=== PATIENT | female | born 1950 | race Caucasian/White ===

== ENCOUNTER → 2017-08-10 | Outpatient (CLI) | payer OTHER ==
[~2017-08-10] VITALS: Ht 162.6 cm; Wt 95.3 kg
[~2017-08-10] MED LIST: ASPIRIN81 M2 PO; BENICAR HCT 401 EAC1 PO; CALCIUM 600 +1 EAC1 PO; FISH OIL 1,001000 M1 PO; IRON325 PO; NEXIUM 40 MG CA40 M1 PO; PROBIOTIC1 EAC1 PO; TELMISARTAN-HC1 EAC1 PO; VITAMIN D1000 UNIT PO
--- NOTE | ~2017-08-10 | S ---
[facility] Daniel Devlin [place] [address] SURGICAL PATH RPT PROCEDURE Name: URMILA HANDLEY Room #: REG CL Lester#: [id number] Admission: 08/10/17 Date of : 52 Discharge: Report #: [id number] Path Case #: [id number] PATHOLOGY REPORT COLLECTION DATE: 08/10/2017 RECEIVED DATE: 08/10/2017 SUBMITTING PHYS: Dr. Obie Matthews OTHER PHYS: Dr. Ricci Coon SPECIMEN(S) RECEIVED: A.Small bowel B.Gastritis C.Polyp gastric x3 * * * * * * * * * * * * FINAL DIAGNOSIS: A. Small bowel mucosa, small bowel, endoscopic biopsy: - Mild active peptic duodenitis with focal villous blunting. - Negative for findings suggesting sprue or celiac disease. B. Gastric mucosa, gastritis, endoscopic biopsy: - Mild reactive gastropathy. - Negative for intestinal metaplasia or atrophy. - Negative for Helicobacter pylori. C. Polyp, gastric, endoscopic biopsy: - Compatible with fundic gland polyps. - Negative for dysplasia or malignancy. (IUV:rhys; 08/11/2017) COMMENT: Well-controlled Helicobacter pylori immunohistochemical stain performed on block B1 - Negative. PATHOLOGIST: Isis Ashley M.D. REPORT ELECTRONICALLY SIGNED BY: Isis Ashley M.D. DATE/TIME: 08/11/2017 15:32 * * * * * * * * * * * * GROSS PATHOLOGY: A. Received in formalin labeled "Urmila Jordann and biopsy small bowel," are several segments of lin soft tissue measuring 1.0 x 0.4 x 0.1 cm in aggregate dimensions and ranging from 0.3 to 0.6 cm in maximum dimension. The specimen is submitted entirely in cassette A1. B. Received in formalin labeled "Urmila Jordann and biopsy gastritis," are multiple segments of lin soft tissue measuring 0.7 x 0.4 cm in aggregate dimensions and ranging from 0.1 to 0.[address] [address] SURGICAL PATH RPT PROCEDURE Name: URMILA HANDLEY Room #: REG [facility].#: [id number] Admission: 08/10/17 Date of : 52 Discharge: Report #: [id number] Path Case #: [id number] maximum dimension. The specimen is submitted entirely in cassette B1. C. The specimen is received in formalin, labeled " Urmila Handley and polyp gastric", are three sessile polyps ranging from 0.7 x 0.5 x 0.3 cm to 1.0 x 0.7 x 0.5 cm, inked black and entirely submitted in C1-C3. (SWS; 08/10/2017) CLINICAL HISTORY: GERD,un ppi, large hiatal hernia, esophagitis, gastritis, gastric polyp, rule out celiac INITIAL CPT CODE(S): A; 17926 B; 82676, 66225 C; 49505 Professional services performed by [facility] at [facility] [address], [place] [address] Technical services performed by [facility] at [address] [place] [address], [address], [place] [address]. [facility] [address] [place] [address] PHONE: [phone] DIRECTOR: Sanya White M.D. * * * END OF REPORT * * *
--- NOTE | ~2017-08-10 | P ---
[facility] [place] [address] PROCEDURE REPORT Name: URMIAL HANDLEY Room #: REG [facility]#: [id number] Admission: 08/10/17 Attend Phys: Obie Matthews MD Discharge: Date of : 52 Report #: [id number] THIS REPORT FOR: //name// CC: Obie Coon MD OUTPATIENT UPPER ENDOSCOPY REPORT BRIEF HISTORY: The patient is a 66-year-old woman with complaints of abdominal pain on PPI therapy. She also has reflux disease and still with some reflux symptoms on PPI therapy. In addition, she has an iron deficiency anemia. PREOPERATIVE DIAGNOSES: Abdominal pain, reflux and iron deficiency anemia. POSTOPERATIVE DIAGNOSES: 1. Severe grade D erosive esophagitis. 2. Large hiatus hernia, 8-10 cm. 3. Diffuse gastritis. 4. Multiple gastric polyps. MEDICATIONS: Deep sedation with propofol per anesthesia. SPECIMENS: 1. Small bowel biopsies to rule out celiac disease. 2. Biopsy of gastritis. 3. Multiple gastric polyps. ESTIMATED BLOOD LOSS: 3 mL. PROCEDURE: EGD with snare polypectomy and biopsy. FINDINGS: Prior to propofol sedation, procedure of upper endoscopy was discussed with the patient as well as potential risks and its complications. She indicates she understands and desires to proceed. DESCRIPTION OF PROCEDURE: With the patient in left lateral decubitus position, Fuji video endoscope was inserted in the cervical esophagus under direct vision without difficulty. Examination of this organ through its entire length revealed normal esophageal mucosa down the squamocolumnar junction. At the squamocolumnar junction, she had extensive esophagitis involving the entire circumference. There was also evidence of a small pseudodiverticulum, likely related to previous inflammatory disease. A significant stricture was not seen. Obvious malignancy was not seen. Findings were felt to be consistent with grade D erosive esophagitis. It was also noted the esophagus was ____ short and likely related to the hiatus hernia. The scope was advanced into the large hiatus hernia. It measured anywhere from 8-10 cm in greatest dimension. [facility] [address] [place] [address] PROCEDURE REPORT Name: URMILA HANDLEY Room #: REG [facility] Benja.#: [id number] Admission: 08/10/17 Attend Phys: Obie Matthews MD Discharge: Date of : 52 Report #: [id number] mucosa in the hernia was unremarkable. No ulcers or bleeding lesions were seen in the hernia. Examination of distal stomach on end view as well as retroflexed views revealed erythematous mucosa. No ulcers or bleeding lesions were seen. Examination of the body and fundus of the stomach revealed multiple polyps. Many were small but some were larger in the range of 10 mm or slightly larger. This had appearance of a typical hyperplastic gastric polyp related to use of PPIs. However, due to the size of some of these polyps, several were removed by snare polypectomy for pathologic examination. The pylorus, duodenal bulb and postbulbar duodenal sweep were inspected and noted to be within normal limits. At that point, the scope was slowly withdrawn and careful circumferential views confirmed the above findings. The patient tolerated the procedure well. CONDITION OF THE PATIENT UPON DISCHARGE: Following procedure, the patient was drowsy, arousable and conversant and will be discharged home when fully ambulatory. INSTRUCTIONS TO THE PATIENT AND FAMILY AT THE TIME OF DISCHARGE: We will follow up on biopsies obtained today. We will have her increase her PPI therapy to twice daily and also she may use ranitidine or Pepcid at bedtime. Anemia very well may be the result of her severe esophagitis. We will follow up on biopsies obtained today. It is noted that she had an M2 capsule study in February 2014, at which point, she is noted to have esophagitis, but other abnormalities were not identified. Also, her last colonoscopy was in February 2014, no abnormalities were identified. At this point, we will have her return to see me in followup in the office in about 6 weeks or so. I think surgery maybe a strong consideration in this patient who has large hiatus hernia and severe esophagitis, who has significant esophagitis on PPI therapy. If there remains concern about anemia, repeating colonoscopy and M2 capsule study may be a consideration. Again, she will return to see me in followup in the office. She will also continue to follow up with Dr. Ricci Coon. By: [id number] Obie Matthews MD /viktor
== END | disposition home or self-care (01) ==
LOC: GI 08:35
DX: K31.7 Polyp of stomach and duodenum (principal); K31.9 Disease of stomach and duodenum, unspecified; K29.80 Duodenitis without bleeding; K44.9 Diaphragmatic hernia without obstruction or gangrene; K22.10 Ulcer of esophagus without bleeding; I10 Essential (primary) hypertension; K21.9 Gastro-esophageal reflux disease without esophagitis; Z85.828 Personal history of other malignant neoplasm of skin; Z98.890 Other specified postprocedural states; Z96.652 Presence of left artificial knee joint; Z79.899 Other long term (current) drug therapy
CPT/HCPCS: 62110; 62900

== ENCOUNTER → 2017-09-04 | Outpatient (CLI) | payer OTHER | LOC: CAT 08:17 | DX: K44.9 Diaphragmatic hernia without obstruction or gangrene (principal); K76.0 Fatty (change of) liver, not elsewhere classified; K21.9 Gastro-esophageal reflux disease without esophagitis; D25.9 Leiomyoma of uterus, unspecified; M47.896 Other spondylosis, lumbar region; M41.86 Other forms of scoliosis, lumbar region ==

== ENCOUNTER 2017-12-06 05:19 | Inpatient (IN) | payer OTHER ==
[~2017-12-06] VITALS: Ht 162.6 cm; Wt 99.3 kg
--- NOTE | ~2017-12-06 | EKG ---
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 : 1950 Requested By: Akil Campbell Order Number: [id number] MD: Ernesto Clifford Measurements Intervals [place] Rate: 76 P: -14 IA: 158 QRS: -53 QRSD: 96 T: 1 QT: 414 QTc: 466 Interpretive Statements Sinus rhythm Inferior infarct, old Poor R wave progression Compared to ECG 11/20/2012 13:04:52 Myocardial infarct finding now present Sinus bradycardia no longer present Inferior Q waves are more prominent Electronically Signed On 12-06-2017 9:16:11 ZANJERO by Ernesto Clifford [email or web address] <ELECTRONICALLY SIGNED> By: Ernesto Clifford MD, [facility] 12/06/17915 5 5 Ernesto Clifford MD, [facility] /EPI
--- NOTE | ~2017-12-06 | H ---
[facility] [place] [address] HISTORY AND PHYSICAL Name: URMILA HANDLEY Room #: 428-P [facility] IN M.R.#: [id number] Admission: 12/06/17 Attend Phys: Akil Campbell MD Discharge: 12/08/17 Date of : 52 Report #: [id number] THIS REPORT FOR: //name// CC: Obie Coon MD PREOPERATIVE DIAGNOSIS: Large paraesophageal hiatal hernia with acid reflux. HISTORY OF PRESENT ILLNESS: The patient is a 67-year old who came to the office in August after her most recent endoscopy. The patient has a history of gastroesophageal reflux for about 10 years. She also has a history of anemia and drop in her hemoglobin. She was found to have esophagitis, on endoscopy 3-4 years ago. Recently on August 10, the patient had a repeat EGD. She is complaining of waking up with acid taste in the throat, a lot of indigestion and tightness in the throat. No chronic cough. Last November, she did have pneumonia. Her most recent EGD in July showed a large hiatal hernia. The patient came in for evaluation for possible repair of the large hiatal hernia. She is currently on Protonix 40 b.i.d. and also Zantac 300 at nighttime. She has tried to raise her head. She also tries to avoid eating before going to bed. The patient had a CT performed. The CT showed a large about half of her stomach is up into the chest. This appears to be a paraesophageal hiatal hernia. Her most recent EGD in July 2017 showed gastritis. Fundic gland polyp. No dysplasia or malignancy. The patient with her symptom of acid reflux and anemia, she is recommended to have her paraesophageal hiatal hernia repair. She understands the procedure and the risks involved and wishes to proceed. PAST MEDICAL HISTORY: She has acid reflux, elevated blood pressure and arthritis. PAST SURGICAL HISTORY: Knee surgery in 2003 and 2013 and tubal ligation in 1983. CURRENT MEDICATIONS: Telmisartan/hydrochlorothiazide 500/225, probiotic, vitamin D, iron, Protonix 40 b.i.d. and Zantac 300 at bedtime. She was on Nexium in the past. ALLERGIES: The patient does not have any allergies. FAMILY HISTORY: There is heart disease and COPD. Mother had cancer. 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 Does not smoke. She drinks 1-2 drinks per month. REVIEW OF SYSTEMS: No chest pain, shortness of breath or palpitation. No numbness or weakness. [address] [address] HISTORY AND PHYSICAL Name: URMILA HANDLEY Room #: [facility] IN M.R.#: [id number] Admission: 12/06/17 Attend Phys: Akil Campbell MD Discharge: 12/08/17 Date of : 52 Report #: [id number] PHYSICAL EXAMINATION: GENERAL: The patient is moderately obese. She is alert and oriented. HEENT: Pupils react to light. Extraocular muscles are intact. Oropharynx clear. NECK: Soft and supple. No masses. CHEST: Clear to auscultation. HEART: Regular rate and rhythm. No murmur or gallop. ABDOMEN: Soft. No mass, guarding, rigidity or rebound. No ascites. IMPRESSION AND RECOMMENDATIONS: The patient is a 67-year old with a longstanding history of acid reflux. The patient was found to have a pretty large paraesophageal hiatal hernia. She is recommended to have this repaired. Because of the paraesophageal hiatal hernia. She is much more likely to have complications compared to a sliding hernia. On CT, it looks like half her stomach is in the chest. The patient did have manometry, which showed good esophageal motility. We will repair the hiatal hernia and perform Mandeep fundoplication for antireflux. Risks of procedure including bleeding, infection, hernia recurrence and injury of esophagus were discussed. Use of a mesh was discussed. The patient understands the procedure. <ELECTRONICALLY SIGNED> By: Akil Campbell MD 12/29/17 1426 2215 [id number] Akil Campbell MD /nt
--- NOTE | ~2017-12-06 | O ---
[facility] [place] [address] OPERATIVE REPORT Name: URMILA HANDLEY Room #: 428-P [facility] IN M.R.#: [id number] Admission: 12/06/17 Attend Phys: Akil Campbell MD Discharge: 12/08/17 Date of : 52 Report #: [id number] THIS REPORT FOR: //name// CC: Obie Coon MD PREOPERATIVE DIAGNOSES: 1. Paraesophageal hiatal hernia. 2. Gastroesophageal reflux disease. POSTOPERATIVE DIAGNOSES: 1. Paraesophageal hiatal hernia. 2. Gastroesophageal reflux disease. PROCEDURES PERFORMED: 1. Laparoscopic repair of paraesophageal hiatal hernia with Phasix mesh. 2. Laparoscopic Mandeep fundoplication. ANESTHESIA: General. SURGEON: Akil Campbell M.D. COMPLICATIONS: None. ESTIMATED BLOOD LOSS: 10 mL. PROCEDURE NOTE: With the patient under general anesthesia, timeout was performed. The patient received preoperative IV antibiotics. Romo catheter was placed. SCDs were applied. The patient was placed in lithotomy position. Abdomen was prepped and draped in sterile fashion. Timeout was performed. An incision in the epigastrium was made. This was about 2 cm incision. Fascia was identified, grasped with hemostat. Fascia was then opened under visualization; 0 Vicryl suture was then placed on the fascia retraction with the abdominal wall lifted anteriorly. Veress needle was then placed through peritoneum. Abdominal cavity was entered by CO2. After creating pneumoperitoneum, an 11 mm trocar was placed. This was placed under visualization. No harm to lung tissue. The 5 mm trocars placed in the right upper quadrant, another 5 mm trocar placed in the left epigastrium and then, a 12 mm trocar placed in left upper quadrant at the midclavicular line and then the anterior axillary line. A 5 mm trocar placed in the left anterior axillary line. Liver retractor was placed on lifting the liver up. The hiatal hernia was visualized. There is probably about a 5-10 cm segment of hernia sac and stomach up in the chest. The peritoneum was divided along the edge of the diaphragm. The hernia sac was then reduced out of the chest. The hernia sac was then excised from the GE junction area using a Harmonic scalpel. The esophagus was identified and preserved from [facility]. [address] [address] OPERATIVE REPORT Name: ENDERURMILA Room #: 428-P [facility] IN ..#: [id number] Admission: 12/06/17 Attend Phys: Akil Campbell MD Discharge: 12/08/17 Date of : 52 Report #: [id number] Esophagus was not manipulated. Dissection was also carried out into the chest where areolar tissue was divided to allow mobilization of the sac and then also the mobilization of the esophagus. Aorta was visualized. This was preserved from [facility]. The diaphragmatic edges were then cleaned off. Lesser sac was entered lateral to the stomach and then up to the GE junction. This allowed the fundus to be completely divided on the upper part away from the spleen and the diaphragm. The diaphragmatic crura were then isolated. A #48-Icelandic bougie was then placed. The diaphragmatic closure was sized based on the bougie. A 3-0 silk sutures were placed. Three separate 3-0 silk sutures were placed in the crura posterior to the esophagus and small pledgets which were used on the 0 silk suture. This was tied down. The diaphragm actually had pretty good strength to it. A single suture was placed anteriorly along the central tendon. This seems to be a little more gaping up that area. After the diaphragmatic closure, a Phasix mesh that is measured as 10 x 10 cm was trimmed about a couple of centimeters off each side and then, a U was cut out of it making a U-shaped mesh. This was placed as 12 mm trocar and left side was placed underneath the GE junction, brought out to the left side and then the right side and the mesh was flattened out well. Mesh was initially tacked with SorbaFix to hold in place. Then, CV2 suture Cuero-Piotr suture was then placed at the medial part of the U cephalad and then the lower corner of the U and then the left side also. SorbaFix was then used to tack the rest of it in place. Mandeep fundoplication was performed. An 0 silk suture placed on the posterior part of the fundus. This was to bring it over. This was trimmed. The suture was divided and held with clips. I was able to go from the patient's right side and see the suture and then was able to bring the fundus underneath the esophagus. Again, a 48 bougie was advanced downward. During the diaphragmatic closure, the bougie was pulled back and then was readvanced for the sizing of the Mandeep fundoplication. The laparoscopic Mandeep was then performed using an 0 Ethibond. Again, pledgets were used. Three separate bites were taken. A nice wrap was able to be performed. The very top suture was also sutured to diaphragm holding in place. Irrigation was performed. No bleeding was identified. Repair is well constructed. The mesh seated well. Tisseel was then placed over the mesh in a spray form. The patient tolerated procedure well. A bougie was removed. A Romo catheter will be removed at the end of the case. The patient had good urinary output. The trocars were removed. CO2 was evacuated as much as possible. Liver retractor was also removed. Prior to this fascia defect, a 12 mm trocar was placed with an EndoStitch of 0 Vicryl. The fascia defect at the cutdown site was closed with [id number] 0 PDS x 2. Skin was irrigated. Skin was closed with 5-0 PDS. Steri-Strip, Band-Aids were applied. The patient tolerated the procedure well. <ELECTRONICALLY SIGNED> By: Akil Campbell MD 12/29/17 1426 1205 [id number] Akil Campbell MD /nt
[~2017-12-06 05:19] MED LIST changes: +NORCO 5-325 TA1 EACH PO; +PRESERVISION T1 EACH PO; +PROTONIX40 M1 PO; +ZANTAC 150MG T150 MG PO
[2017-12-06 08:00] VITALS: BP 136/86
[2017-12-06 09:15] LABS: CREATININE 0.7 mg/dL (0.6-1.0); POTASSIUM 4.1 mmol/L (3.5-5.1)
[2017-12-06 15:30] VITALS: BP 143/77
[2017-12-06 20:00] VITALS: BP 131/69
[2017-12-07] VITALS: BP 130/75
[2017-12-07 04:00] VITALS: BP 136/76
[2017-12-07 07:25] VITALS: BP 144/81
[2017-12-07 17:14] VITALS: BP 121/74
[2017-12-07 19:10] VITALS: BP 107/59
[2017-12-08 05:21] VITALS: BP 140/74
[2017-12-08 07:14] VITALS: BP 131/89
[2017-12-08 15:20] VITALS: BP 106/62
[2017-12-08] MEDS ORDERED: HYDROCODONE-ACE15 ML PO (15:47)
[2017-12-08 16:11] VITALS: BP 106/62
== END 2017-12-08 17:12 | disposition home or self-care (01) | DRG 328 ==
LOC: TBA 05:19 → 4E 05:19 → PRE 12:59 → 4E 15:53 → ENTRNSPT 12-08 16:59 → 4E 12-08 17:12
PROVIDERS: Surgery
PROC: 0DV44ZZ Restriction of Esophagogastric Junction, Percutaneous Endoscopic Approach (ICD-10-PCS; principal; 2017-12-06)
PROC: 0BUT4JZ Supplement Diaphragm with Synthetic Substitute, Percutaneous Endoscopic Approach (ICD-10-PCS; principal; 2017-12-06)
DX: K44.9 Diaphragmatic hernia without obstruction or gangrene (principal); K21.9 Gastro-esophageal reflux disease without esophagitis; M19.90 Unspecified osteoarthritis, unspecified site; Z80.9 Family history of malignant neoplasm, unspecified; Z82.5 Family history of asthma and other chronic lower respiratory diseases; Z88.6 Allergy status to analgesic agent; Z88.8 Allergy status to other drugs, medicaments and biological substances
CPT/HCPCS: 10783; 50010; 50101; 50249; 50411; 50455; 50555; 50558; 50848; 50886; 51436; 51474; 51489; 52182; 53307; 53310; 53335; 54022; 54109; 56462; 56524; 56525; 56526; 56528; 62110; 62900; 70005

== ENCOUNTER → 2018-08-02 | Outpatient (CLI) | payer OTHER ==
[~2018-08-02] MED LIST changes: +HYDROCODONE-ACE15 ML PO
== END ==
LOC: CAT 07:56
DX: K44.9 Diaphragmatic hernia without obstruction or gangrene (principal); I51.7 Cardiomegaly; I70.0 Atherosclerosis of aorta; J84.10 Pulmonary fibrosis, unspecified; K21.9 Gastro-esophageal reflux disease without esophagitis

== ENCOUNTER → 2021-05-18 | Outpatient (CLI) | payer OTHER | LOC: SJCVCIMAG 14:46 | PROVIDERS: ATTEND Internal Medicine | DX: I48.91 Unspecified atrial fibrillation (principal); I10 Essential (primary) hypertension ==

== ENCOUNTER → 2021-06-22 | Outpatient (CLI) | payer OTHER | LOC: RAD 08:56 | PROVIDERS: ATTEND Family Medicine | DX: M54.6 Pain in thoracic spine (principal); M54.5 Low back pain ==

== ENCOUNTER → 2021-08-03 | Outpatient (CLI) | payer OTHER | LOC: RAD 14:09 | PROVIDERS: ATTEND Nurse Practitioner | DX: M47.816 Spondylosis without myelopathy or radiculopathy, lumbar region (principal); M51.36 Other intervertebral disc degeneration, lumbar region; M54.40 Lumbago with sciatica, unspecified side; M43.16 Spondylolisthesis, lumbar region ==

== ENCOUNTER → 2021-08-10 | Outpatient (CLI) | payer OTHER | LOC: RAD 10:02 | PROVIDERS: ATTEND Nurse Practitioner | DX: M40.294 Other kyphosis, thoracic region (principal); J90 Pleural effusion, not elsewhere classified; G95.29 Other cord compression; M51.35 Other intervertebral disc degeneration, thoracolumbar region; R91.8 Other nonspecific abnormal finding of lung field ==

== ENCOUNTER → 2021-08-11 | Outpatient (CLI) | payer OTHER ==
[2021-08-11 14:49] LABS: CREATININE 0.7 mg/dL (0.6-1.0)
== END ==
LOC: CAT 13:39 → LAB 13:39
PROVIDERS: ATTEND Nurse Practitioner
DX: M47.815 Spondylosis without myelopathy or radiculopathy, thoracolumbar region (principal); R22.2 Localized swelling, mass and lump, trunk; K44.9 Diaphragmatic hernia without obstruction or gangrene; J98.11 Atelectasis; J90 Pleural effusion, not elsewhere classified; E04.2 Nontoxic multinodular goiter

== ENCOUNTER → 2021-08-20 | Outpatient (CLI) | payer OTHER ==
[~2021-08-20] VITALS: Ht 160 cm; Wt 87.1 kg
[~2021-08-20] MED LIST changes: +APAP W/CODEINE1 TA2 PO; +CALCIUM 500 +1 EAC5 PO; +CALCIUM 600 +1 EA12 PO; +DIAZEPAM 2MG TAB2 MG PO; +ELIQUIS5 MG PO; +FAMOTIDINE 20 M20 MG PO; +NEURONTIN 300M300 M2 PO; +PRESERVISION A1 EAC2 PO; +PROTONIX40 M4 PO
[2021-08-20 10:52] VITALS: BP 149/79
[2021-08-20 11:11] LABS: ABSOLUTE NEUTROPHILS 3.2 thou/uL (1.4-8.2); BASOPHILS 2.1 % (0.0-2.0); EOSINOPHILS 5.2 % (0.0-3.0); HEMATOCRIT 39.4 % (37.0-47.0); HEMOGLOBIN 12.9 gm/dL (12.0-15.0); LYMPHOCYTES 18.9 % (24.0-44.0); MCH 27.3 pg (26.0-34.0); MCHC 32.6 g/dL (28.0-37.0); MCV 83.7 fL (80.0-100.0); MONOCYTES 13.6 % (1.0-8.0); PLATELET COUNT 295 thou/uL (150-400); POLYS 60.2 % (36.0-66.0); RBC 4.71 mil/uL (4.20-5.00); RDW 14.3 % (10.5-14.5); WBC 5.3 thou/uL (4.0-11.0)
[2021-08-20 11:26] LABS: INR 1.03; PROTIME 11.2 Seconds (10.5-12.1)
[2021-08-20 14:01] VITALS: BP 175/89
--- NOTE | 2021-08-30 11:27 | PATH ---
[facility] [address] [place] [address] PATHOLOGY RPT PROCEDURE Name: ENDERURMILA KEATING Room #: REG STEVEN Batista#: [id number] Admission: 08/20/21 Date of : 52 Discharge: Report #: [id number] Path Case #: [id number] [facility] Accession Number: [id number] . 01 Material submitted: . spinal cord - PARASPINAL MASS BIOPSY . 01 Diagnosis: Soft tissue "paraspinal mass": -No carcinoma seen. - Minute fragment with only lymphocytes present. - See comment. (SHA:rhys; 08/23/2021) [facility] 08/24/2021 1459 Local . 01 Comment: Immunoperoxidase stains: . CD45: positive AE1/AE3: negative CK7: Negative CK20: Negative TTF-1: Negative TITA-3: Negative Chromogranin: negative Synaptophysin: negative P40: Negative. . This case is also reviewed by Dr. Magnolia Cochran. She agreed with the above diagnosis. If lymphoproliferative process is suspected FLOW studies are recommended. The material biopsied may not be development representative. Suggest clinical correlation. . (MELANIE:rhys; 08/23/2021) . 01 Addendum: . Special studies report received from [facility], [address] [place] [address], [address], [place], [address], on case [id number], labeled with their number [id number], dated 08/26/2021. . Flow Cytometry: Hematologic Neoplasia Assessment . Clinical History Paraspinal mass . Indication For Study [address] [address] PATHOLOGY RPT PROCEDURE Name: URMILA HANDLEY Room #: REG [facility].#: [id number] Admission: 08/20/21 Date of : 52 Discharge: Report #: [id number] Path Case #: [id number] Evaluation for hematolymphoid neoplasia . Specimen Tissue, Paraspinal . Viability 93% (7AAD exclusion) . Interpretation Tissue, Paraspinal: CD10+ monotypic (clonal) B-cell population (81% of sample) with predominantly small to intermediate / mixed / cell size (see comments) . 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 Correlation with available clinical, laboratory, and morphologic data is recommended. If needed, FISH testing (IGH/BCL2) is available. Please contact us if further testing for this sample is needed. . Populations Analyzed Abnormal B-cells: 81% Scatter properties compatible with small to intermediate cell size, cells characterized as: CD45+, CD19+, CD20+, CD5-, CD10+, CD23-, FMC7-/+, CD30-, CD43-, CD38+/-, HLA DR+, sIg lambda+ Remaining 5% B-cells: 0.1%, polytypic/polyclonal sIg light Lymphocytes: chain pattern T-cells: no significant abnormalities of the markers tested CD4:CD8: 8.7 NK cells: 0.2% CD45 Negative 14% No significant reactivity with the markers tested Events/Debris: tested (may represent non-hematolymphoid cells, degenerated cells, debris, unlysed red blood cells, etc.) . Morphologic Evaluation A slide was reviewed for quality review specialist purposes only. . Specimen Description Total Cell Yield: 1.56 X 10 and 6 . Reagent(s) Used CD2, CD3, CD4, CD5, CD7, CD8, CD10, CD11b, CD19, CD20, CD23, CD30, CD38, CD43, CD45, CD56, CD57, FMC-7, HLA-DR, kappa, lambda . at [facility]. [place] [address] PATHOLOGY RPT PROCEDURE Name: ENDERURMILA Room #: REG [facility] Sarthak.#: [id number] Admission: 08/20/21 Date of : 52 Discharge: Report #: [id number] Path Case #: [id number] Hematopathologist . Intended Use Flow cytometry is optimally used to immunophenotypically characterize abnormal populations when they are detected. Negative flow cytometry results do not exclude lymphoma or neoplasia. Possible false negative flow cytometry results may occur in, but are not limited to, the following: neoplastic cells in Hodgkin lymphoma are not typically adequately represented by routine clinical flow cytometry; neoplastic cells may be lost or inadequately represented due to degeneration, sample processing, sampling artifact, or patchy involvement; plasma cells are typically underrepresented by flow cytometry; immature cells/blasts may be underrepresented due to hemodilution; myeloproliferative disorders and low grade myelodysplasia may not have immunophenotypic abnormalities or increased blasts. Correlation with all available clinical, laboratory, and morphologic data is always necessary to assess for the possibility of false negative flow cytometry results and to establish a diagnosis. Each marker in this analysis was used to assess for potential antigenic abnormalities or to evaluate detected abnormalities. . Any image or images that accompany this report are development representative images only and should not be used to render a diagnosis. . Disclaimer(s) This test was developed and its performance characteristics determined by [employer]. It has not been cleared or approved by the Food and Drug Administration. . Performing [facility] is a business unit of [facility] a wholly-owned subsidiary of [employer]. . This test was performed at [facility]. at [address], [address] - Edge Stripper: Russell Lopez MD. . For inquiries, the physician may contact Lab: [phone] . A complete copy of the report is on file. . Professional services performed by [facility]. at [address], [place] [address]. Technical services performed by [employer]. at [address], [place] [address]. . (SHA:cuate 08/26/2021) . [address] [address] PATHOLOGY RPT PROCEDURE Name: URMILA HANDLEY Room #: REG [facility]..#: [id number] Admission: 08/20/21 Date of : 52 Discharge: Report #: [id number] Path Case #: [id number] AZJ/08/26/2021 Addendum Electronically Signed by Alonzo Verdugo MD. Pathologist . 01 Electronically signed: . Alonzo Verdugo MD, Pathologist NPI- [id number] . 01 Gross description: . Received in formalin labeled "Urmila Handley, paraspinal mass biopsy" are multiple lin-brown soft tissue fragments measuring in aggregate 1.2 x 0.5 x 0.2 cm. The specimen is submitted entirely in A1-A2. ([facility]; 08/21/2021) GZA/GZA 08/21/2021 1215 Local . 01 Pathologist provided ICD-10: M46.30 . 01 CPT . 726148, N33121, R60863 Specimen Comment: A courtesy copy of this report has been sent to [phone] Specimen Comment: Report sent to Performed at: [address], [place] [id number] MD Alonzo Verdugo MD Phone: [phone]
== END | disposition home or self-care (01) ==
LOC: LAB 10:11
PROVIDERS: Radiology Vascular & Interventional Radiology; ATTEND Internal Medicine
DX: M79.89 Other specified soft tissue disorders (principal); M46.30 Infection of intervertebral disc (pyogenic), site unspecified; I10 Essential (primary) hypertension; K21.9 Gastro-esophageal reflux disease without esophagitis; I48.91 Unspecified atrial fibrillation; M85.80 Other specified disorders of bone density and structure, unspecified site; Z85.820 Personal history of malignant melanoma of skin; Z85.828 Personal history of other malignant neoplasm of skin; Z79.01 Long term (current) use of anticoagulants; Z98.890 Other specified postprocedural states; Z79.899 Other long term (current) drug therapy

== ENCOUNTER → 2021-08-30 | Outpatient (CLI) | payer OTHER ==
[2021-08-30 10:42] LABS: HEMATOCRIT 40.1 % (37.0-47.0); MCH 26.9 pg (26.0-34.0); MCHC 32.3 g/dL (28.0-37.0); MCV 83.4 fL (80.0-100.0); RBC 4.81 mil/uL (4.20-5.00); RDW 14.4 % (10.5-14.5); WBC 4.6 thou/uL (4.0-11.0)
[2021-08-30 10:55] LABS: APTT 28.4 Seconds (24.5-32.8); INR 1.01
[2021-08-30 10:58] LABS: ALBUMIN 3.7 g/dL (3.4-5.0); CALCIUM 9.5 mg/dL (8.5-10.1); CREATININE 0.9 mg/dL (0.6-1.0); POTASSIUM 4.6 mmol/L (3.5-5.1); TOTAL BILIRUBIN 0.5 mg/dL (0.2-1.0); TOTAL PROTEIN 7.2 g/dL (6.4-8.2)
[2021-08-30 11:26] LABS: URINE BILIRUBIN NEGATIVE (Negative); URINE BLOOD NEGATIVE (Negative); URINE CLARITY CLEAR; URINE COLOR YELLOW; URINE GLUCOSE-RANDOM* NEGATIVE (Negative); URINE KETONES NEGATIVE (Negative); URINE LEUKOCYTES-REFLEX NEGATIVE (Negative); URINE NITRITE-REFLEX NEGATIVE (Negative); URINE PROTEIN (DIPSTICK) NEGATIVE (Negative); URINE UROBILINOGEN 0.2 E.U./dl (0.2-1.0)
== END ==
LOC: LAB 08:52 → PAC 08:52
PROVIDERS: ATTEND Specialist
DX: Z01.812 Encounter for preprocedural laboratory examination (principal); C41.2 Malignant neoplasm of vertebral column

== ENCOUNTER 2021-09-02 11:09 | Day surgery (SDC) | payer OTHER ==
[~2021-09-02] VITALS: Ht 157.5 cm; Wt 86.2 kg
[2021-09-02 12:30] VITALS: BP 143/67
[2021-09-02 16:35] VITALS: BP 143/67
--- NOTE | 2021-09-08 15:07 | PATH ---
[facility] [place] [address] PATHOLOGY RPT PROCEDURE Name: URMILA HANDLEY Room #: DEP [facility]#: [id number] Admission: 09/02/21 Date of : 52 Discharge: 09/02/21 Report #: [id number] Path Case #: [id number] [facility] Accession Number: [id number] . 01 Material submitted: . thorax - RIGHT THORACIC PARASPINOUS TUMOR T8/T9-FS. Modifiers: right, PARASPINOUS, T8/T9 . 01 Clinical history: . DS 09/02/EXCISION TUMOR SPINAL TUMOR . 02 Frozen section diagnosis: . FROZEN SECTION DIAGNOSIS AND TOUCH PREP: (Magnolia Cochran MD) . Right paraspinal mass, touch prep: - Lymphoid proliferation. - Defer to flow cytometry and permanents. . This report was given to Dr. Rodriguez by Dr. Cochran on 09/02/2021 and a written report is placed in the patient's chart. . Frozen section and touch prep performed at [facility], [address] [place], [place] [address]nella Moran, [place] [address]. . . FROZEN SECTION GROSS DESCRIPTION: The specimen is received labeled with the patient's name and right thoracic paraspinal tumor. Received fresh from the operating room are multiple fragments of lin-pink, fleshy tissue fragments ranging in size from 0.6 to the smallest which measures 0.2 cm. Ash Pit Worker section is submitted for touch prep and subsequently the entire tissue is submitted in block A1 in formalin. Tissue is also submitted in RPMI for flow cytometry studies. (ANK:rhys; 09/02/2021) NNK/QMS . 03 Amended report: . This is an amended report because a consultative opinion has been obtained. There is a change in the diagnosis. CASE SIGNED OUT WITH ONLY SPECIAL STUDIES REPORT ENTERED, NO DIAGNOSIS ENTERED. . 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 . Special studies report received from [facility], [address] [place] [address], [address], , [address], on case [id number], labeled with their number [id number], dated 09/04/2021. . Flow Cytometry: Hematologic Neoplasia Assessment . Clinical History Right thoracic/ paraspinal mass . Indication For Study Evaluation for hematolymphoid neoplasia . Specimen Tissue, Right Thoracic/ Paraspinal Mass . Viability 15% (7AAD exclusion) . Interpretation Tissue, Right Thoracic/ Paraspinal Mass: CD10+ monotypic (clonal) B-cell population (11% of sample) with predominantly small to intermediate cell size (see comments) . 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 Correlation with available clinical, laboratory, and morphologic data is recommended. If needed, FISH testing (IGH/BCL2) is available. Please contact us if further testing for this sample is needed. . Populations Analyzed Abnormal B-cells: 11% Scatter properties compatible with small to intermediate cell size, cells characterized as: CD45+, CD19+, CD20+, CD5-, CD10+, CD23-, FMC7+, CD30-, CD43-, CD38-, HLA DR+, sIg lambda+ Remaining 3% B-cells: 0.0%, polytypic/polyclonal sIg light chain Lymphocytes: pattern T-cells: no significant abnormalities of the markers tested CD4:CD8: 3.4 NK cells: 0.1% CD45 Negative 86% No significant reactivity with the markers tested Events/Debris: (may represent non-hematolymphoid cells, degenerated cells, debris, unlysed red blood cells, etc.) . [address] [address] PATHOLOGY RPT PROCEDURE Name: URMILA HANDLEY Room #: DEP [place] Lester#: [id number] Admission: 09/02/21 Date of : 52 Discharge: 09/02/21 Report #: [id number] Path Case #: [id number] Morphologic Evaluation A slide was reviewed for quality assurance specialist purposes only. . Specimen Description Total Cell Yield: 0.99 X 10 and 6 This sample is less than 50% viable which is considered suboptimal for routine clinical flow cytometry analysis. The analysis, however, is being reported because the sample is considered irreplaceable. These results must be interpreted in the context of all available clinical, laboratory, and morphologic information. . Pertinent Prior Test Results Received Date Test Type Specimen Type Result 08/25/2021 Flow Cytometry Tissue Result Number: [id number] Tissue, Paraspinal: CD10+ monotypic (clonal) B-cell population (81% of sample) with predominantly small to intermediate/mixed/ cell size (see comments) . Reagent(s) Used CD2, CD3, CD4, CD5, CD7, CD8, CD10, CD11b, CD19, CD20, CD23, CD30, CD38, CD43, CD45, CD56, CD57, FMC-7, HLA-DR, kappa, lambda . at [facility]. Gustavo Portillo MD Pathologist . Intended Use Flow cytometry is optimally used to immunophenotypically characterize abnormal populations when they are detected. Negative flow cytometry results do not exclude lymphoma or neoplasia. Possible false negative flow cytometry results may occur in, but are not limited to, the following: neoplastic cells in Hodgkin lymphoma are not typically adequately represented by routine clinical flow cytometry; neoplastic cells may be lost or inadequately represented due to degeneration, sample processing, sampling artifact, or patchy involvement; plasma cells are typically underrepresented by flow cytometry; immature cells/blasts may be underrepresented due to hemodilution; myeloproliferative disorders and low grade myelodysplasia may not have immunophenotypic abnormalities or increased blasts. Correlation with all available clinical, laboratory, and morphologic data is always necessary to assess for the possibility of false negative flow cytometry results and to establish a diagnosis. Each marker in this analysis was used to assess for potential antigenic abnormalities or to evaluate detected abnormalities. . [address] [place] [address] PATHOLOGY RPT PROCEDURE Name: URMILA HANDLEY Room #: DEP [facility]..#: [id number] Admission: 09/02/21 Date of : 52 Discharge: 09/02/21 Report #: [id number] Path Case #: [id number] Any image or images that accompany this report are client care representative images only and should not be used to render a diagnosis. . Disclaimer(s) This test was developed and its performance characteristics determined by [employer], [employer] It has not been cleared or approved by the Food and Drug Administration. . Performing [facility] is a business unit of [employer], [employer], a wholly-owned subsidiary of [employer]. . This test was performed at [facility]. at [address], , [address] - Bearingizer: Russell Lopez MD. . For inquiries, the physician may contact Lab: [phone] . A complete copy of the report is on file. . Professional services performed by [facility]. at [address], [place] [address]. Technical services performed by [employer]. at [address], [place] [address]. . (CLW:cuate 09/06/2021) . [facility] 09/07/2021 1114 Local Previously Reported As: Special studies report received from [facility], [address] [place] [address], [address], , [address], on case [id number], labeled with their number [id number], dated 09/04/2021. Flow Cytometry: Hematologic Neoplasia Assessment Clinical History Right thoracic/ paraspinal mass Indication For Study Evaluation for hematolymphoid neoplasia Specimen Tissue, Right Thoracic/ Paraspinal Mass Viability 15% (7AAD exclusion) [address] [address] PATHOLOGY RPT PROCEDURE Name: URMILA HANDLEY Room #: DEP [facility]..#: [id number] Admission: 09/02/21 Date of : 52 Discharge: 09/02/21 Report #: [id number] Path Case #: [id number] Interpretation Tissue, Right Thoracic/ Paraspinal Mass: CD10+ monotypic (clonal) B-cell population (11% of sample) with predominantly small to intermediate cell size (see comments) Comments The flow cytometry results are most typical of follicular lymphoma. Correlation with available clinical, laboratory, and morphologic data is recommended. If needed, FISH testing (IGH/BCL2) is available. Please contact us if further testing for this sample is needed. Populations Analyzed Abnormal B-cells: 11% Scatter properties compatible with small to intermediate cell size, cells characterized as: CD45+, CD19+, CD20+, CD5-, CD10+, CD23-, FMC7+, CD30-, CD43-, CD38-, HLA DR+, sIg lambda+ Remaining 3% B-cells: 0.0%, polytypic/polyclonal sIg light chain Lymphocytes: pattern T-cells: no significant abnormalities of the markers tested CD4:CD8: 3.4 NK cells: 0.1% CD45 Negative 86% No significant reactivity with the markers tested Events/Debris: (may represent non-hematolymphoid cells, degenerated cells, debris, unlysed red blood cells, etc.) Morphologic Evaluation A slide was reviewed for quality assurance specialist purposes only. Specimen Description Total Cell Yield: 0.99 X 10 and 6 This sample is less than 50% viable which is considered suboptimal for routine clinical flow cytometry analysis. The analysis, however, is being reported because the sample is considered irreplaceable. These results must be interpreted in the context of all available clinical, laboratory, and morphologic information. Pertinent Prior Test Results Received Date Test Type Specimen Type Result 08/25/2021 Flow Cytometry Tissue Result Number: [id number] Tissue, Paraspinal: CD10+ monotypic (clonal) B-cell population (81% of sample) with predominantly small to intermediate/mixed/ cell size (see comments) [address] [address] PATHOLOGY RPT PROCEDURE Name: ENDERSRINATHYU DIALLO Room #: DEP [place] M.R.#: [id number] Admission: 09/02/21 Date of : 52 Discharge: 09/02/21 Report #: [id number] Path Case #: [id number] Reagent(s) Used CD2, CD3, CD4, CD5, CD7, CD8, CD10, CD11b, CD19, CD20, CD23, CD30, CD38, CD43, CD45, CD56, CD57, FMC-7, HLA-DR, kappa, lambda at [facility] [employer] Gustavo Portillo MD Pathologist Intended Use Flow cytometry is optimally used to immunophenotypically characterize abnormal populations when they are detected. Negative flow cytometry results do not exclude lymphoma or neoplasia. Possible false negative flow cytometry results may occur in, but are not limited to, the following: neoplastic cells in Hodgkin lymphoma are not typically adequately represented by routine clinical flow cytometry; neoplastic cells may be lost or inadequately represented due to degeneration, sample processing, sampling artifact, or patchy involvement; plasma cells are typically underrepresented by flow cytometry; immature cells/blasts may be underrepresented due to hemodilution; myeloproliferative disorders and low grade myelodysplasia may not have immunophenotypic abnormalities or increased blasts. Correlation with all available clinical, laboratory, and morphologic data is always necessary to assess for the possibility of false negative flow cytometry results and to establish a diagnosis. Each marker in this analysis was used to assess for potential antigenic abnormalities or to evaluate detected abnormalities. Any image or images that accompany this report are client care representative images only and should not be used to render a diagnosis. Disclaimer(s) This test was developed and its performance characteristics determined by [employer], [employer] It has not been cleared or approved by the Food and Drug Administration. Performing [facility] is a business unit of [employer], [employer], a wholly-owned subsidiary of [employer]. This test was performed at [facility]. at [address], [address] - Bearingizer: Russell Lopez MD. For inquiries, the physician may contact Lab: [phone] A complete copy of the report is on file. [facility] [address] [place] [address] PATHOLOGY RPT PROCEDURE Name: URMILA HANDLEY Room #: DEP [facility].#: [id number] Admission: 09/02/21 Date of : 52 Discharge: 09/02/21 Report #: [id number] Path Case #: [id number] Professional services performed by [facility]. at [address], [place] [address]. Technical services performed by [employer], [employer] at [address], [place] [address]. (VIVIANE:cuate 09/06/2021) Signed out on: 09/06/21 . 04 Comment: Sections show fragments of fibrous connective tissue with an atypical lymphoid infiltrate. From low power, there is a slightly nodular architecture. The atypical lymphocytes are small to medium sized with irregular nuclear contours, condensed chromatin and scant to moderate cytoplasm. Neither a high mitotic rate nor abundant single cell necrosis is seen. Geographic necrosis is not identified. . To confirm the flow cytometry findings and to identify cells in a tissue architectural context, properly controlled immunohistochemical stains are performed. . Block A1: CD20 - diffusely reactive; PAX-5 - diffusely reactive; CD3 - stains admixed T-cells; CD5 - stains admixed T-cells; CD10 - diffusely reactive; BCL-6 - a majority of atypical lymphocytes reactive; BCL-2 - diffusely reactive; CD23 - partial/focal reactivity; CD21 - nonreactive; Cyclin D1 - lacks diffuse nuclear reactivity; MUM1 - nonreactive; Ki-67 - proliferative index of approximately 10%. . Flow cytometric immunophenotypic analysis was performed at [facility]. The interpretation is "CD10 positive monotypic (clonal) B-cell population (81% of sample) with predominantly small to intermediate/mixed/cell size." There are 81% abnormal B-cells that are small to intermediate in cell size and characterized as CD45 positive, CD19 positive, CD20 positive, CD5 negative, CD10 positive, CD23 negative, FMC7 negative/positive, CD30 negative, CD43 negative, CD38 positive/negative, HLA-DR positive, and surface lambda positive. There are 5% remaining lymphocytes. Of the remaining lymphocytes, there are 0.1% polyclonal B-cells. T-cells have a CD4/CD8 ratio of 8.7 and no aberrant T-cell antigen expression. Please see separate flow cytometry report from [facility] ([id number]). [address] [address] PATHOLOGY RPT PROCEDURE Name: URMILA HANDLEY Room #: DEP [place] M..#: [id number] Admission: 09/02/21 Date of : 52 Discharge: 09/02/21 Report #: [id number] Path Case #: [id number] . 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 Exact subclassification should be based on the morphologic examination of an involved lymph node or lymphoid organ. Clinical and radiographic correlation is required. . The case is co-reviewed with Dr. Wing who agrees on 09/06/2021. The case is discussed with Dr. Rodriguez on 09/08/2021 at 1140. . 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 04 Electronically signed: . Jeri Francis MD, Pathologist NPI- [id number] . 01 Gross description: . PLEASE SEE GROSS DESCRIPTION UNDER FROZEN SECTION HEADING. /QMS 09/02/2021 2319 Local . 04 Pathologist provided ICD-10: C85.19 . 04 CPT . 262705, D28008, D66455, 742527, 570193 Specimen Comment: A courtesy copy of this report has been sent to [phone] Specimen Comment: [phone] Specimen Comment: Report sent to / DR MARIO Specimen Comment: A duplicate report has been generated due to demographic updates. Performed at: [address] [facility] [id number] MD Alonzo Verdugo MD Phone: [phone] Performed at: [address] [facility] [address] [id number] MD Isis Ashley MD Phone: [phone] Performed at: [address] [facility] [address] [place] [id number] MD Petey Sosa MD Phone: [phone] Performed at: 04 [facility] [address] [id number] MD Jeri Francis MD Phone: [phone]
== END 2021-09-02 17:10 | disposition home or self-care (01) ==
LOC: OR 11:09 → TBA 11:10 → OR 11:13
PROVIDERS: ATTEND Specialist
DX: C85.19 Unspecified B-cell lymphoma, extranodal and solid organ sites (principal); I10 Essential (primary) hypertension; I48.91 Unspecified atrial fibrillation; K21.9 Gastro-esophageal reflux disease without esophagitis; Z98.890 Other specified postprocedural states; Z79.899 Other long term (current) drug therapy; Z85.828 Personal history of other malignant neoplasm of skin; Z85.820 Personal history of malignant melanoma of skin; Z20.822 Contact with and (suspected) exposure to COVID-19; Z98.51 Tubal ligation status; Z79.01 Long term (current) use of anticoagulants
CPT/HCPCS: 50010; 50101; 50402; 50850; 51878; 54118; 56525; 56527; 56528; 56532; 57103; 58456; 58457; 58567; 62110; 62900; 65002; 65040; 65090; 70005

== ENCOUNTER → 2021-11-15 | Outpatient (CLI) | payer OTHER | LOC: RAD 09:34 | PROVIDERS: ATTEND Family Medicine | DX: M47.814 Spondylosis without myelopathy or radiculopathy, thoracic region (principal); M47.816 Spondylosis without myelopathy or radiculopathy, lumbar region; M54.9 Dorsalgia, unspecified ==

== ENCOUNTER → 2021-11-16 | Outpatient (CLI) | payer OTHER | LOC: RAD 15:17 | PROVIDERS: ATTEND Family Medicine | DX: M25.551 Pain in right hip (principal); M51.37 Other intervertebral disc degeneration, lumbosacral region ==